=== PATIENT | female | born 1960 ===

== ENCOUNTER 2022-01-19 10:44 | Day surgery (SDC) | payer OTHER ==
[~2022-01-19 10:44] MED LIST: CLONAZEPAM1 MG PO; CYMBAL PO; DIOVAN320 MG PO; GABAPEN PO; JANUMET XR 50-1 EAC1 PO; LANTUS; RESTORIL PO; TROPOL XL PO
[2022-01-19] MEDS ORDERED: PERCOCET 5-3251 EACH PO (15:25)
[2022-01-19] MEDS ORDERED: CEPHALEXIN500 MG PO (15:25)
== END 2022-01-19 17:55 | disposition home or self-care (01) ==
LOC: CIR.AMB 10:44
PROVIDERS: ATTEND Surgery
DX: R15.9 Full incontinence of feces (principal); Z88.2 Allergy status to sulfonamides; Z88.8 Allergy status to other drugs, medicaments and biological substances; I10 Essential (primary) hypertension; E11.9 Type 2 diabetes mellitus without complications; Z79.84 Long term (current) use of oral hypoglycemic drugs; M19.90 Unspecified osteoarthritis, unspecified site; F32.A Depression, unspecified; E11.319 Type 2 diabetes mellitus with unspecified diabetic retinopathy without macular edema; M79.7 Fibromyalgia; H93.19 Tinnitus, unspecified ear; E66.9 Obesity, unspecified
CPT/HCPCS: 64581; 95971; C1778

== ENCOUNTER 2022-02-02 05:36 | Day surgery (SDC) | payer OTHER ==
[~2022-02-02 05:36] MED LIST changes: +CEPHALEXIN500 MG PO; +PERCOCET 5-3251 EACH PO
[2022-02-02] MEDS ORDERED: ULTRAM50 MG PO (10:30)
== END 2022-02-02 12:10 | disposition home or self-care (01) ==
LOC: CIR.AMB 05:36
PROVIDERS: ATTEND Surgery
DX: R15.9 Full incontinence of feces (principal); K57.30 Diverticulosis of large intestine without perforation or abscess without bleeding; Z88.8 Allergy status to other drugs, medicaments and biological substances; Z20.822 Contact with and (suspected) exposure to COVID-19; Z88.2 Allergy status to sulfonamides; I10 Essential (primary) hypertension; E11.9 Type 2 diabetes mellitus without complications; Z79.4 Long term (current) use of insulin; G43.909 Migraine, unspecified, not intractable, without status migrainosus; M79.7 Fibromyalgia; K21.9 Gastro-esophageal reflux disease without esophagitis
CPT/HCPCS: 64590; 95971; L8679